=== PATIENT | male | born 1985 | race Caucasian/White ===

== ENCOUNTER 2023-12-31 21:56 | Observation (INO) | payer OTHER, SELFPAY ==
[2023-12-31 14:17] VITALS: BP 188/95
--- NOTE | 2023-12-31 14:45 | ED.GENMED ---
History of Present Illness
General
Chief Complaint: Abdominal Symptoms
Source: patient
Time Seen by Provider: 12/31/23 14:31
History of Present Illness
History of Present Illness:
38yoM with a remote history of kidney stones presenting for evaluation of vomiting. Symptoms began around 5:30am this morning and he has been vomiting persistently throughout the day. He estimates that he has vomited about 10x today. He had diarrhea
last night but none today. He had left sided back pain earlier today but has not had any pain in several hours. He states his symptoms do not feel like his prior kidney stones. He denies any fevers, dysuria, hematuria, chest pain, shortness of
breath. Patient ate chicken at an [place] restaurant last night for dinner. He uses marijuana several times weekly.
Past History
Past History
ED Past Medical History: Psychiatric (Anxiety, depression) and Other (Kidney stones)
ED Past Surgical History: Urological (Lithotripsy)
Social History
Personal: Single
Living: with family
Employment: Employed
Phy Exam
Physical Exam
Physical Exam:
Patient appears uncomfortable, diaphoretic, arrives with an emesis bag
General Physical Exam
General Presentation: well appearing and moderate distress
General Skin: warm and diaphoretic
General Mental: alert
Cardiovascular Exam
Cardiovascular Exam: regular rate/rhythm and no murmur
Pulmonary Exam
Pulmonary Exam: lungs clear, no respiratory distress, no crackles and no wheezing
Gastrointestinal Exam
Gastrointestinal Exam: non tender, soft, non distended and no cva tenderness
Course
Orders/Labs/Results
Orders:
Orders
12/31/23 14:44
0.9% Sodium Chloride 1000 ml [Nss] 1,000 ml IV BOLUS
Ondansetron Injectable [Zofran] 4 mg IV NOW STA
12/31/23 14:49
Complete Blood Count/With Diff Urgent
Comprehensive Metabolic Panel Urgent
Lipase Urgent
12/31/23 15:52
Diphenhydramine [Benadryl] 25 mg IV NOW STA
Metoclopramide [Reglan] 10 mg IV NOW STA
12/31/23 16:51
Electrocardiogram (*1) Urgent
Reason for Study: Other
Other Reason for Exam: Vomiting
EKG- Treatment ONCE
12/31/23 16:54
Troponin I Urgent
Urinalysis Reflex To Culture Urgent
Date Specimen was Collected: 12/31/23
Time Specimen was Collected: 16:07
Urine Microscopic Reflex Cult Urgent
Urine Culture Urgent
DENISSE Source: U
Specimen Description:
Date Specimen was Collected: 12/31/23
Time Specimen was Collected: 16:07
12/31/23 17:01
CT Abd/pel Without Iv Or Oral Urgent
Comment:
Reason For Exam: Vomiting, L flank pain, hx of kidney stones
12/31/23 18:04
Haloperidol Lactate [Haldol] 5 mg IM NOW STA
Abnormal Lab Results
12/31/23 12/31/23
14:49 16:54
WBC 11.0 H 10^3/uL
(4.8-10.8)
MPV 11.3 H fL
(7.4-10.4)
Abs Immat Gran (auto) 0.1 H 10^3/uL
(0-0.05)
Absolute Neuts (auto) 9.0 H 10^3/uL
(1.4-6.5)
Neutrophils % 81.0 H %
(42.2-75.2)
Lymphocytes % 13.7 L %
(20.5-51.1)
Glucose 110 H mg/dl
(70-99)
Urine Ketones 3+ A
(Negative)
Ur Occult Blood Reflex 3+ A
(Negative)
Urine RBC 16-20 A /HPF
(0-2)
Urine Bacteria (Reflex) Moderate A
(Negative)
12/31/23 14:49
12/31/23 14:49
Vital Signs
Initial and Last Documented VS:
Initial Vital Signs
Temp Pulse Resp BP Pulse Ox
98.8 F 65 20 188/95 99
12/31/23 14:17 12/31/23 14:17 12/31/23 14:17 12/31/23 14:17 12/31/23 14:17
Last Documented Vital Signs
Temp Pulse Resp BP Pulse Ox
98.8 F 62 20 152/93 99
12/31/23 14:17 12/31/23 20:10 12/31/23 20:10 12/31/23 20:10 12/31/23 20:10
MDM/Problems Addressed
Differential Diagnosis Includes:
38yoM here with vomiting that began this morning. Ate at a restaurant for dinner last night. Also had diarrhea yesterday. Hx of kidney stones although he denies any pain currently. He appears uncomfortable and diaphoretic. He is hypertensive with
otherwise stable vitals. No abdominal or CVA tenderness on exam. Differential diagnosis includes but is not limited to: gastroenteritis, cannabinoid hyperemesis, kidney stone, dehydration, KESHAV, electrolyte abnormality
Initial ED plan: Check abdominal labs. IV Zofran and fluid bolus and reassess.
*EKG
EKG Intrepretation Date: 12/31/23
EKG Intrepretation Time: 17:05
Heart Rate: 62
Rate: normal
Rhythm: sinus
[place]: normal axis
Interval: normal interval
QRS Pattern: normal QRS
Ischemia: no ischemia
*Critical Care Note
Total Time (30-74mins, 75-104mins- exclusive of procedures): Not Applicable
Update Note
Update Note:
Labs reveal a WBC of 11 which is likely reactive 2/2 vomiting. Electrolytes and renal function normal. UA with microscopic hematuria and moderate bacteria although patient denies any urinary symptoms. He had no improvement with Zofran. CT abdomen,
EKG, and troponin added which are all unremarkable. He received Reglan, Benadryl, and Haldol with continued symptoms. Patient unable to tolerate PO intake and was admitted for intractable symptoms.
ED Attending Note
-
Portions of this chart may have been created with voice recognition software.� Occasional wrong word or��sound alike� substitutions may have occurred due to the inherent limitations of voice recognition software.
Discharge Plan
Departure
Patient Disposition: Admit
Date of Disposition: 12/31/23
Time of Disposition: 20:22
Presentation/result/management discussed w/ accepting MD/DO: Hospitalist
Discharge Problem:
Intractable nausea and vomiting
Prescriptions:
No Action
rabies vacc,human diploid (PF) [Imovax Rabies Vaccine (PF)] 1 ML recon soln
1 ml IM . DIRECTED Qty: 3 0RF
Rx Instructions:
See Rabies Vaccine Post Exposure Prophylaxis Instruction Sheet for Dosing Instructions
cholecalciferol (vitamin D3) 1,000 UNITS tablet
1,000 units PO DAILY
Referrals:
Antonietta Sol DO [Family Provider] -
Interventions
Interventions:
*Risk Screen - Suicide Last Done: 12/31/23 14:17
*General Assessment Last Done: 12/31/23 14:17
*Neglect/Abuse Screening Last Done: 12/31/23 14:17
ED- Fall Risk Assessment Last Done: 12/31/23 14:33
*ED COVID-19 Vaccine History Last Done: 12/31/23 14:33
XC-Qqschl-Hoskuqgtbs Assessment Last Done: 12/31/23 14:33
Discharge Date and Time
Print Language: ALGERIAN
[2023-12-31] MEDS: NSS 1000 IV (14:51)
[2023-12-31] MEDS: ZOFRAN 4 MG IV (14:54)
[2023-12-31 14:57] LABS: % Basophils 0.5 % (0-2); % Eosinophils 0.4 % (0-6); % Immature Granulocytes 0.5 % (0-0.5); % Lymphocytes 13.7 % (20.5-51.1); % Monocytes 3.9 % (1.7-9.3); Absolute Basophils 0.1 10^3/uL (0-0.2); Absolute Immature Granulocytes 0.1 10^3/uL (0-0.05); Absolute Lymphocytes 1.5 10^3/uL (1.2-3.4); Absolute Monocytes 0.4 10^3/uL (0.1-0.6); Hemoglobin 15.8 g/dL (13.0-18.0); Mean Corp Hgb Conc. 35.9 g/dL (33.0-37.0); Mean Corpuscular Hgb 29.8 pg (27.0-31.0); Mean Corpuscular Volume 82.9 fL (80.0-94.0); Mean Platelet Volume 11.3 fL (7.4-10.4); Nucleated Red Blood Cells % 0 % (-); Platelet Count 234 10^3/uL (130-400); Red Blood Cell Count 5.31 10^6/uL (4.70-6.10)
[2023-12-31 15:12] LABS: ALT (SGPT) 31 U/L (0-50); AST (SGOT) 36 U/L (17-59); Albumin 4.9 g/dl (3.5-5.0); Alkaline Phosphatase 72 U/L (38-126); Blood Urea Nitrogen 16 mg/dl (9-20); Carbon Dioxide 24 mmol/L (22-30); Chloride 107 mmol/L (98-107); Estimated Creatinine Clearance > 125 ml/min; Glucose 110 mg/dl (70-99); Lipase 185 U/L (23-300); Potassium 4.6 mmol/L (3.5-5.1); Sodium 140 mmol/L (135-145); Total Bilirubin 1.1 mg/dl (0.2-1.3); Total Protein 7.4 g/dl (6.3-8.2); eGFR > 60.00
[2023-12-31] MEDS: BENADRYL 25 MG IV (15:55)
[2023-12-31] MEDS: REGLAN 10 MG IV (15:55)
[2023-12-31 16:02] VITALS: BP 184/73
[2023-12-31 17:06] LABS: Urine Albumin Trace (Neg - Trace); Urine Bilirubin Negative (Negative); Urine Character Clear (Clear); Urine Color Yellow; Urine Glucose Negative (Negative); Urine Ketone 3+ (Negative); Urine Leukocyte Negative (Negative); Urine Nitrite Negative (Negative); Urine Occult Blood 3+ (Negative); Urine Specific Gravity 1.015 (<1.030); Urine Urobilinogen Negative (Neg - 1+)
[2023-12-31 17:19] LABS: Urine Red Blood Cell 16-20 /HPF (0-2); Urine Squamous Cell 0-2 /LPF (Few); Urine White Cell 0-2 /HPF (0-5)
[2023-12-31 17:20] LABS: Urine Bacteria Moderate (Negative)
[2023-12-31 17:38] VITALS: BP 160/84
[2023-12-31 17:54] LABS: Troponin I < 0.012 ng/ml
[2023-12-31] MEDS: HALDOL 5 MG IM (18:19)
[2023-12-31 20:10] VITALS: BP 152/93
--- NOTE | 2023-12-31 21:24 | HPS.HSE ---
Family Physician
-
Family Physician: Antonietta Sol
Chief Complaint
-
Vomitting
History of Present Illness
38yo man with a remote history of kidney stones comes in with severe vomiting. His symptoms began this morning and he has been vomiting persistently throughout the day. He estimates he has vomited perhaps 10 times today. He also had diarrhea last
night but none today. He had left sided back pain earlier today but has not had any pain in several hours. He states his symptoms do not feel like his prior kidney stone pain. He denies fevers, dysuria, hematuria, chest pain, shortness of breath. He
uses cannabis several times weekly. He does not drink alcohol. He vomited multiple times in the ED, and this eventually was controlled with IM haldol.
Medical History
Past Medical History
Past Medical History: Reports Other
Additional Past Medical History:
Anxiety,
depression
Kidney stones
Lithotripsy
Obesity
Past Surgical History: Reports None
Social History
Tobacco: Non-smoker
Alcohol: None
Drug: Marijuana
Personal: Partner
Employment: Employed
Family History
Family History: Not pertinent
Allergies / Home Medications
Allergies reflects when Allergies were last updated in [facility].
Home Medications with original date entered in [facility]
Allergy/Medication List:
Allergies
Allergy/AdvReac Type Severity Reaction Status Date / Time
No Known Allergies Allergy Verified 12/31/23 14:17
Home Medications
No meds at this time
Review of Systems
-
History Source: Patient
A 12 point ROS was completed and negative except as noted: Yes
Physical Exam
Vital Signs
Vital Signs
Temp Pulse Resp BP Pulse Ox
98.8 F 62 20 152/93 99
12/31/23 14:17 12/31/23 20:10 12/31/23 20:10 12/31/23 20:10 12/31/23 20:10
Physical Exam
General: Well Developed, Well Nourished, No Apparent Distress, Comfortable, Conversant and Obese
HEENT: Moist mucous membranes, Atraumatic, [place] Conjunctivae, No Ptosis, Nose Appears Normal and Ears Appear Normal
Respiratory: Clear
Cardiac: S1/S2 and Regular Rhythm
GI: Soft, Non Tender and Non Distended
Musculoskeletal: No Clubbing, No Cyanosis and No Edema
Skin: Warm and Dry; No Rash or Jaundice
Neuro: Awake, Alert, Oriented and AO x 3
Psych: Calm
Laboratory Results
-
12/31/23 14:49
12/31/23 14:49
Laboratory Results
Total Bilirubin 1.1 mg/dl (0.2-1.3) 12/31/23 14:49
AST 36 U/L (17-59) 12/31/23 14:49
ALT 31 U/L (0-50) 12/31/23 14:49
Alkaline Phosphatase 72 U/L (38-126) 12/31/23 14:49
Troponin I < 0.012 ng/ml 12/31/23 16:54
Lipase 185 U/L (23-300) 12/31/23 14:49
Data Reviewed
-
Lab Data: Labs Reviewed by me
Impression/Plan
-
IMPRESSION:
38 man with cyclical vomiting, h/o kidney stones, and regular cannabis use. CT results:
The unenhanced liver, gallbladder, bile ducts, pancreas, spleen, and bilateral adrenal glands are unremarkable.
Small nonobstructing calculus in the upper pole of the left kidney measuring 4 mm.
Punctate nonobstructing calculus in the upper pole of the right kidney.
No hydronephrosis.
No ureterolithiasis.
The abdominal aorta is normal in caliber.
The appendix is within normal limits.
No bowel wall thickening, obstruction, or inflammation.
No extraluminal free air, fluid collection, or ascites.
The urinary bladder and prostate gland are unremarkable.
No suspicious osseous lesion.
PLAN:
1. Nausea control as required. This could be a viral syndrome or related to cannabis.
Zofran prn
Ativan prn
Haldol IM if above two does not work
NPO over night
IV fluids
Start to advance diet in the am
2. Recommend abstinence from cannabis
Full code
Ambulation for DVTp
[2023-12-31 22:13] VITALS: BP 152/74
[2023-12-31 22:47] VITALS: BMI 35.7
[2023-12-31] MEDS: LR 1000 IV (22:59)
[2023-12-31 23:16] VITALS: BP 136/64
--- NOTE | 2023-12-31 23:54 | PTCARENOTE ---
Receive pt from ER. Pt alert oriented X3, calm, in no distress. Pt ambulatory from the stretcher to the room. Pt denies abd/flank pain. Pt states that the nausea is improved, denies vomiting. Pt oriented to the room, call silveira within reach. Pt's
spouse (Elizabeth) at the bedside. VSS (T=98.9, HR=84, RR=20, OU=999/64, SpO2=92% on RA). IVFs infusing as per order. Pt NPO, will be advanced to clear liquid diet in the am for breakfast. Will keep monitoring the pt's status.
[2024-01-01] MEDS: LR 1000 IV (05:46)
[2024-01-01 07:05] VITALS: BP 138/82
[2024-01-01 07:46] LABS: Hematocrit 40.7 % (39.0-52.0); Hemoglobin 13.9 g/dL (13.0-18.0); Mean Corp Hgb Conc. 34.2 g/dL (33.0-37.0); Mean Corpuscular Hgb 29.4 pg (27.0-31.0); Mean Corpuscular Volume 86.2 fL (80.0-94.0); Mean Platelet Volume 11.4 fL (7.4-10.4); Platelet Count 205 10^3/uL (130-400); Red Blood Cell Count 4.72 10^6/uL (4.70-6.10); Red Cell Dist. Width 13.2 % (11.5-14.5); White Blood Cell Count 9.5 10^3/uL (4.8-10.8)
[2024-01-01 08:28] LABS: Blood Urea Nitrogen 14 mg/dl (9-20); Calcium 9.1 mg/dl (8.4-10.2); Carbon Dioxide 24 mmol/L (22-30); Chloride 107 mmol/L (98-107); Estimated Creatinine Clearance > 125 ml/min; Glucose 89 mg/dl (70-99); Lipase 910 U/L (23-300); Magnesium 1.9 mg/dl (1.6-2.3); Sodium 137 mmol/L (135-145); eGFR > 60.00
[2024-01-01 08:49] LABS: TSH 0.48 uIU/ml (0.47-4.68)
--- NOTE | 2024-01-01 10:20 | W.PN.HOSP.TC ---
Addendum entered and electronically signed by Ladonna Parham MD 01/01/24 13:59:
total DC time 38 min
Original Note:
Today's Communication/Plan
-
see A/P
Assessment / Plan
Assessment / Plan
HPI: 38 yo man with remote history of kidney stones p/w severe vomiting. His symptoms began in the morning and he has been vomiting persistently throughout the day. He estimates he has vomited perhaps 10 times. He also had diarrhea the night prior.
He had left sided back pain prior but none since admission. He states his symptoms do not feel like his prior kidney stone pain.
He denies fevers, dysuria, hematuria, chest pain, shortness of breath. He uses cannabis several times weekly. He does not drink alcohol. He vomited multiple times in the ED, and this eventually was controlled with IM haldol.
A/P:
# cyclical vomiting likely due to regular marijuana use
CT AP unrevealing
Cont Zofran prn,
Hold further Haldol and Ativan prn
Recommend abstinence from cannabis
# h/o kidney stones
Full code
Ambulation for DVTp
Anticipated Discharge: Today
Subjective/Interval History
-
Date of Service: January 01, 2024
Objective Data
-
Labs:
Laboratory Results
01/01/24
06:39
WBC 9.5
Hgb 13.9
Hct 40.7
Plt Count 205
Sodium 137
Potassium 4.0
Chloride 107
Carbon Dioxide 24
BUN 14
Creatinine 0.7
Glucose 89
Calcium 9.1
Vital Signs:
Vital Signs
Temp Pulse Resp BP Pulse Ox
36.6 C 79 18 138/82 98
01/01/24 07:05 01/01/24 07:05 01/01/24 07:05 01/01/24 07:05 01/01/24 07:05
I&O
12/31/23 01/01/24 01/02/24
06:59 06:59 06:59
Intake Total 5 / 5
Balance 1074
Review of Systems
-
Abdomen/GI: Denies Abdominal Pain, Nausea (resolved ) or Vomiting (resolved)
Physical Exam
-
General: Well Developed, Well Nourished, No Apparent Distress, Comfortable and Conversant; Negative Respiratory Distress
HEENT: Normocephalic, Atraumatic, Nose Appears Normal and Ears Appear Normal; Negative Oxygen
Respiratory: Clear to Auscultation and Non Labored Respirations; Negative Accessory Resp Muscle Use
Cardiac: Regular Rhythm and S1/S2
GI: Soft, Nontender, Nondistended and Normal Bowel Sounds
Skin: Warm and Dry
Neuro: Awake, Alert, Oriented and AO x 3
Psych: Calm and Intact Judgement/Insight
Data Reviewed
-
CT Scan: Report Reviewed by me
Labs: Labs Reviewed by me
[2024-01-01 11:04] LABS: Amphetamines Negative (Negative); Barbiturates Negative (Negative); Benzodiazepines Negative (Negative); Buprenorphine Negative (Negative); Cocaine Negative (Negative); Marijuana Positive (Negative); Methadone Negative (Negative); Methamphetamines Negative (Negative); Opiates Negative (Negative); Phencyclidine Negative (Negative); Tricyclic Antidepressants Negative (Negative)
--- NOTE | 2024-01-01 11:18 | CM ---
Patient seen bedside with , initial assessment completed. Patient resides with in first floor apartment, denies DME, VN, or SNF. Patient PCP Antonietta Sol, pharmacy [facility] in [place]. Patient denies any needs from CM upon
discharge. CM will continue to follow for all discharge planning needs.
Plan; home no needs.
[2024-01-01 11:27] VITALS: BP 138/83
--- NOTE | 2024-01-01 13:46 | W.DCSUMMARY ---
Discharge Summary
Discharge Data
Date of Admission: 12/31/23
Date of Discharge: 01/01/24
-
Pending Results: No
Hospital Course
Principal Diagnosis:
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
Chronic Diagnoses:�
History of kidney stones
Consultations:�
None
Procedures:�
None
Clinical course:�
This is a 38-year-old male with past medical history as stated above, who presented with severe vomiting. He admits to taking regular marijuana.
Problem 1:
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
His CT AP was unrevealing.
His UDS was positive for marijuana
He was treated with Zofran while in the hospital and received Reglan and Haldol as well.
He has been informed to abstain from cannabis going forward.
His nausea and vomiting have resolved prior to discharge, and he was able to tolerate solid food before going home.
Discharge Plan
-
Patient Disposition: Home (Routine Discharge)
Discharge Diagnosis/Procedures: cyclical vomiting likely due to marijuana use
Condition: Good
Diet: As tolerated and Regular
Activity: As tolerated
Driving Restrictions: As prior to admission
Referrals:
Antonietta Sol, DO [Family Provider] - in less than 1 week
Prescriptions:
Continued
cholecalciferol (vitamin D3) 1,000 UNITS tablet
1,000 units PO DAILY
Discontinued
Imovax Rabies Vaccine (PF) 1 ML recon soln
1 ml IM . DIRECTED Qty: 3 0RF
Rx Instructions:
See Rabies Vaccine Post Exposure Prophylaxis Instruction Sheet for Dosing Instructions
Discharge Orders:
Discharge Patient (As Directed); Ordered 01/01/24
Ordered By: Ladonna Parham
Discharge Date and Time
Discharge Date/Time: 01/01/24 13:00
Print Language: ANDORRAN
== END 2024-01-01 13:00 | disposition home or self-care (01) ==
LOC: 4 EAST ACU 21:56
PROVIDERS: Physician Assistant; ADMITTING PHYSICIAN Internal Medicine; ATTENDING PHYSICIAN Internal Medicine; EMERGENCY PHYSICIAN Student in an Organized Health Care Education/Training Program; FAMILY PHYSICIAN Family Medicine
DX: R11.2 Nausea with vomiting, unspecified (principal); F12.90 Cannabis use, unspecified, uncomplicated; R10.9 Unspecified abdominal pain; R19.7 Diarrhea, unspecified; M54.9 Dorsalgia, unspecified; N20.0 Calculus of kidney; F41.9 Anxiety disorder, unspecified; F32.A Depression, unspecified; R61 Generalized hyperhidrosis; E66.9 Obesity, unspecified; Z68.35 Body mass index [BMI] 35.0-35.9, adult; Z87.442 Personal history of urinary calculi
CPT/HCPCS: 74176; 80048; 80053; 80306; 81003; 81015; 83690; 83735; 84443; 84484; 85025; 85027; 87086; 93005; 96361; 96372; 96374; 96375; 99285; G0378

== ENCOUNTER 2024-04-26 12:42 | Emergency (ER) | payer OTHER, SELFPAY ==
[2024-04-26 12:50] VITALS: BP 153/98
--- NOTE | 2024-04-26 12:55 | ED.GENMED ---
History of Present Illness
General
Chief Complaint: Flank Pain
Source: patient
Exam Limitations: none
Time Seen by Provider: 04/26/24 12:55
Nursing documentation reviewed up to this point in time: agreed with
History of Present Illness
History of Present Illness:
This is a 38-year-old male with a past medical history of kidney stones, presenting to the emergency department today with concerns of left-sided flank pain and left-sided groin pain for the past 3 days. Patient has also had gross hematuria,
nausea, and vomiting associated with this. Patient states that he has had multiple kidney stones in the past and feels that this is exactly how he feels when he gets a kidney stone. Patient follows with Dr. Alexandre. Patient has had a kidney
stone as big as 13 mm in the past requiring lithotripsy. Patient also had an episode of diarrhea yesterday. Patient denies any chest pain or shortness of breath, patient denies any syncopal episodes, fevers or chills. Patient denies any burning
with urination. Patient states that today, his pain persists but he did start to improve and called Dr. Alexandre office and the nurse there told him that he should report to the emergency department for further evaluation.
Past History
Past History
ED Past Medical History: Psychiatric (Anxiety, depression) and Other (Kidney stones)
ED Past Surgical History: Urological (Lithotripsy)
Social History
Personal: Single
Living: with family
Employment: Employed
Review of Systems
Review of Systems
All Other Systems: ROS reviewed and negative except as documented in HPI and ROS
Phy Exam
Physical Exam
Physical Exam:
General: Patient is well appearing and in no acute distress; non-toxic
Skin: Warm and dry, no rashes or lesions
Head: Normocephalic, atraumatic
Eyes: Sclera non-icteric. EOMs intact. PERRLA.
Cardiac: Regular rate and rhythm, no murmurs
Peripheral Vascular: No lower extremity swelling or edema
Pulm: Normal respiratory effort
Abdomen: Left CVA tenderness noted, mild left lower quadrant tenderness palpation noted, no palpable masses
Neuro: CN II-XII intact, no focal neurologic deficits.
Psychiatric: Appropriate mood and affect.
Course
Orders/Labs/Results
Orders:
Orders
04/26/24 13:25
CT Abd/pelvis W Iv Cont Urgent
Comment:
Reason For Exam: left flank and groin pain
Ketorolac [Toradol] 15 mg IV NOW STA
Ondansetron Injectable [Zofran] 4 mg IV NOW STA
04/26/24 13:49
Complete Blood Count/With Diff Urgent
Comprehensive Metabolic Panel Urgent
Urinalysis Reflex To Culture Urgent
Date Specimen was Collected: 04/26/24
Time Specimen was Collected: 13:42
Urine Microscopic Reflex Cult Urgent
Abnormal Lab Results
04/26/24
13:49
MPV 11.0 H fL
(7.4-10.4)
Absolute Monos (auto) 0.7 H 10^3/uL
(0.1-0.6)
Glucose 108 H mg/dl
(70-99)
Ur Occult Blood Reflex 4+ A
(Negative)
Urine RBC 7-10 A /HPF
(0-2)
04/26/24 13:49
04/26/24 13:49
Vital Signs
Initial and Last Documented VS:
Initial Vital Signs
Temp Pulse Resp BP Pulse Ox
98.1 F 100 16 153/98 98
04/26/24 12:50 04/26/24 12:50 04/26/24 12:50 04/26/24 12:50 04/26/24 12:50
Last Documented Vital Signs
Temp Pulse Resp BP Pulse Ox
98.1 F 98 18 150/90 98
04/26/24 12:50 04/26/24 18:16 04/26/24 18:16 04/26/24 18:16 04/26/24 18:16
MDM/Problems Addressed
Differential Diagnosis Includes:
Nephrolithiasis, urinary tract infection, pyelonephritis, diverticulitis, gastroenteritis
MDM/Problems Addressed:
38-year-old male with past medical history of kidney stones presents emergency department today with gross hematuria and left-sided flank pain. Patient states this been going on for the past few days, he had multiple episodes are intermittent
nausea and vomiting as well. On physical exam, he is well-appearing, he is declining medication for pain at this time, did offer Zofran Toradol. Patient had lab work obtained which did not show any evidence of leukocytosis, no electrolyte
abnormalities. He had a urinalysis done which showed blood but no signs of infection. His abdominal and pelvic CAT scan revealed a 8 mm calculus within the left renal pelvis and no associated hydro, as well as a 2 mm nonobstructing stone in the
superior pole of the right kidney. Did review this case with Dr. Meza who suspects that patient is either having intermittent obstruction or that he passed a stone before being image. Discussed findings with patient. Patient states that he
feels well enough to go home, will send Zofran and Flomax to pharmacy. Patient stable for discharge. Patient will call Dr. Alexandre's office for follow-up appointment.
Chronic conditions affecting care:
Nephrolithiasis
*Pulse Oximetry
Patient hypoxic: no
*Critical Care Note
Total Time (30-74mins, 75-104mins- exclusive of procedures): Not Applicable
Data Reviewed
Review of Other/Old Records Reveals: Records (Reviewed discharge summary from 01/01/2024, patient seen for cyclical vomiting and admitted for marijuana use, reviewed ER physician documentation from 04/19/2013, patient seen for kidney stone)
Source: patient and records
Further Testing Considered But Not Given:
N/A
Patient Management
Escalation/DeEscalation of care consider admission/obs:
Admit not indicated, patient stable for discharge, case reviewed with my attending Dr. Otoole
ED Attending Note
-
Portions of this chart may have been created with voice recognition software.� Occasional wrong word or��sound alike� substitutions may have occurred due to the inherent limitations of voice recognition software.
Discharge Plan
Departure
Patient Disposition: Home (Routine Discharge)
Date of Disposition: 04/26/24
Time of Disposition: 17:43
Patient with high blood pressure during this ER visit?: Yes
Condition: Good
Discharge Problem:
Kidney calculus
Instructions: Renal Colic (DC), How to Strain Your Urine, BLOOD PRESSURE
Prescriptions:
New
tamsulosin [Flomax] 0.4 mg capsule
0.4 mg PO DAILY Qty: 8 0RF
ondansetron 4 mg tablet,disintegrating
4 mg PO Q6H PRN (Reason: nausea and vomiting) Qty: 8 0RF
No Action
cholecalciferol (vitamin D3) 1,000 UNITS tablet
1,000 units PO DAILY
Referrals:
Gilbert Garcia PA-C [Family Provider] -
Sonny Alexandre MD [Active] - Call in 1-3 days for appt
Stand Alone Forms: Return to Work
Activity Restrictions/Additional Instructions:
Please return emergency department should you develop fevers or chills, burning with urination, intractable nausea or vomiting, syncopal episodes, chest pain, shortness of breath, or any other signs or symptoms concerning to you.
Please follow-up with Dr. Alexandre.
Flomax and Zofran have been sent to your pharmacy.
Interventions
Interventions:
*Risk Screen - Suicide Last Done: 04/26/24 12:50
*General Assessment Last Done: 04/26/24 12:50
*Neglect/Abuse Screening Last Done: 04/26/24 12:50
*ED COVID-19 Vaccine History Last Done: 04/26/24 12:57
*Nursing Disposition Last Done: 04/26/24 18:16
DO-Cvecei-Xskseefcrz Assessment Last Done: 04/26/24 12:57
ED-Male Genitourinary Assessment Last Done: 04/26/24 12:57
Discharge Date and Time
Discharge Date/Time: 04/26/24 18:17
Print Language: FILIPINO
[2024-04-26 14:02] LABS: % Basophils 1.2 % (0-2); % Eosinophils 1.3 % (0-6); % Immature Granulocytes 0.3 % (0-0.5); % Lymphocytes 25.1 % (20.5-51.1); % Monocytes 7.3 % (1.7-9.3); % Neutrophils 64.8 % (42.2-75.2); Absolute Basophils 0.1 10^3/uL (0-0.2); Absolute Eosinophils 0.1 10^3/uL (0-0.7); Absolute Lymphocytes 2.4 10^3/uL (1.2-3.4); Absolute Monocytes 0.7 10^3/uL (0.1-0.6); Absolute Neutrophils 6.2 10^3/uL (1.4-6.5); Hematocrit 46.2 % (39.0-52.0); Hemoglobin 16.1 g/dL (13.0-18.0); Mean Corp Hgb Conc. 34.8 g/dL (33.0-37.0); Mean Corpuscular Hgb 29.8 pg (27.0-31.0); Mean Corpuscular Volume 85.4 fL (80.0-94.0); Nucleated Red Blood Cells % 0 % (-); Platelet Count 230 10^3/uL (130-400); Red Blood Cell Count 5.41 10^6/uL (4.70-6.10); Red Cell Dist. Width 12.8 % (11.5-14.5); White Blood Cell Count 9.5 10^3/uL (4.8-10.8)
[2024-04-26 14:12] LABS: ALT (SGPT) 27 U/L (0-50); AST (SGOT) 26 U/L (17-59); Albumin 4.7 g/dl (3.5-5.0); Alkaline Phosphatase 55 U/L (38-126); Blood Urea Nitrogen 9 mg/dl (9-20); Calcium 9.6 mg/dl (8.4-10.2); Carbon Dioxide 26 mmol/L (22-30); Chloride 100 mmol/L (98-107); Glucose 108 mg/dl (70-99); Potassium 4.1 mmol/L (3.5-5.1); Sodium 139 mmol/L (135-145); Total Bilirubin 0.7 mg/dl (0.2-1.3); Total Protein 7.2 g/dl (6.3-8.2); eGFR > 60.00
[2024-04-26 14:16] LABS: Urine Albumin Negative (Neg - Trace); Urine Bilirubin Negative (Negative); Urine Character Clear (Clear); Urine Color Yellow; Urine Glucose Negative (Negative); Urine Ketone Negative (Negative); Urine Leukocyte Negative (Negative); Urine Nitrite Negative (Negative); Urine Occult Blood 4+ (Negative); Urine Urobilinogen Negative (Neg - 1+); Urine pH 6.5 (5.0-9.0)
[2024-04-26 14:58] LABS: Urine Mucus Many
[2024-04-26 15:01] LABS: Urine Amorphous Seen
[2024-04-26 18:16] VITALS: BP 150/90
== END 2024-04-26 18:17 | disposition home or self-care (01) ==
LOC: EMR 12:42
PROVIDERS: Physician Assistant; EMERGENCY PHYSICIAN Emergency Medicine; FAMILY PHYSICIAN Physician Assistant
DX: N20.0 Calculus of kidney (principal); R31.0 Gross hematuria; R11.2 Nausea with vomiting, unspecified; F41.8 Other specified anxiety disorders; Z87.442 Personal history of urinary calculi
CPT/HCPCS: 99284; 74177; 80053; 81003; 81015; 85025; Q9967

== ENCOUNTER → 2024-08-30 15:36 | Outpatient (REF) | payer OTHER, SELFPAY | LOC: RAD 15:36 | PROVIDERS: ATTENDING PHYSICIAN Specialist; FAMILY PHYSICIAN Student in an Organized Health Care Education/Training Program | DX: N20.0 Calculus of kidney (principal) | CPT/HCPCS: 74018 ==

== ENCOUNTER 2024-09-20 06:18 | Day surgery (SDC) | payer OTHER, SELFPAY ==
[2024-09-20] VITALS (14 sets, daily range): BP systolic 132–165; BP diastolic 81–110; BMI 33.3
[2024-09-20] MEDS: NORMOSOL-R/PLASMALYTE-A 1000 IV (07:42)
[2024-09-20] MEDS: Pyridium 200 MG PO (09:59)
[2024-09-20] MEDS: TORADOL 30 MG IV (10:19)
[2024-09-20] MEDS: COMPAZINE 5 MG IV (11:46)
== END 2024-09-20 12:03 | disposition home or self-care (01) ==
LOC: SDS 06:18
PROVIDERS: ATTENDING PHYSICIAN Specialist
DX: N20.0 Calculus of kidney (principal); R31.0 Gross hematuria
CPT/HCPCS: 52356; 74018; 76000; C2617

== ENCOUNTER 2024-09-23 07:30 | Emergency (ER) | payer OTHER, SELFPAY ==
[2024-09-23 07:33] VITALS: BP 141/93
--- NOTE | 2024-09-23 07:45 | ED.GENMED ---
History of Present Illness
<THEODORE Hutton Last Filed: 09/23/24 07:50>
General
Chief Complaint: Male Genito-Urinary Symptoms
Source: patient
Exam Limitations: none
Time Seen by Provider: 09/23/24 07:37
History of Present Illness
History of Present Illness:
39-year-old male presents complaining of increased left flank and lower abdominal pain with nausea and vomiting as well as significant hematuria. 3 days ago, he had lithotripsy, stone irrigation and stent placement of his left ureter. He was doing
well over the weekend however today the pain and nausea increased as well as the hematuria. They spoke with the urology office today and they were advised to come here for evaluation. He denies a fever. He is not currently on an antibiotic. No
chest pain or shortness of breath. He is typically healthy otherwise
Past History
<THEODORE Hutton Last Filed: 09/23/24 07:50>
Past History
ED Past Medical History: Psychiatric (Anxiety, depression) and Other (Kidney stones)
ED Past Surgical History: Urological (Lithotripsy)
Social History
Personal: Single
Living: with family
Employment: Employed
Phy Exam
<THEODORE Hutton Last Filed: 09/23/24 07:50>
Physical Exam
Physical Exam:
General: Uncomfortable appearing male no acute respiratory distress
HEENT: Normocephalic atraumatic
Heart: Regular rate and rhythm
Lungs: Clear no wheeze
Abdomen is soft but tender to the left mid abdomen and flank
Extremities: No cyanosis
Skin: Warm no rash
Course
<THEODORE Hutton Last Filed: 09/23/24 07:50>
Orders/Labs/Results
Orders:
Orders
09/23/24 07:43
0.9% Sodium Chloride 1000 ml [Nss] 1,000 ml IV BOLUS
Ketorolac [Toradol] 15 mg IV NOW STA
Ondansetron Injectable [Zofran] 4 mg IV NOW STA
09/23/24 07:46
Complete Blood Count/With Diff Urgent
Comprehensive Metabolic Panel Urgent
Urinalysis Reflex To Culture Urgent
Date Specimen was Collected: 09/23/24
Time Specimen was Collected: 07:38
Urine Microscopic Reflex Cult Urgent
Urine Culture Urgent
DENISSE Source: U
Specimen Description:
Date Specimen was Collected: 09/23/24
Time Specimen was Collected: 07:38
09/23/24 07:51
CR Abdomen - 2 Views Urgent
Comment:
Reason For Exam: left ureteral stent check
09/23/24 07:56
HYDROmorphone [Dilaudid] 1 mg IV NOW STA
Ondansetron Injectable [Zofran] 4 mg IV NOW STA
Abnormal Lab Results
09/23/24
07:46
WBC 14.8 H 10^3/uL
(4.8-10.8)
MPV 10.5 H fL
(7.4-10.4)
Abs Immat Gran (auto) 0.1 H 10^3/uL
(0-0.05)
Absolute Neuts (auto) 12.7 H 10^3/uL
(1.4-6.5)
Neutrophils % 85.8 H %
(42.2-75.2)
Lymphocytes % 9.9 L %
(20.5-51.1)
Chloride 108 H mmol/L
(98-107)
BUN 8 L mg/dl
(9-20)
Glucose 148 H mg/dl
(70-99)
Calcium 10.4 H mg/dl
(8.4-10.2)
Urine Ketones 1+ A
(Negative)
Ur Occult Blood Reflex 4+ A
(Negative)
Leukocyte Esterase Rfl 2+ A
(Negative)
Urine RBC >100 A /HPF
(0-2)
Urine WBC (Reflex) 21-25 A /HPF
(0-5)
Urine Albumin (Reflex) 4+ A
(Neg - Trace)
09/23/24 07:46
09/23/24 07:46
Vital Signs
Initial and Last Documented VS:
Initial Vital Signs
Temp Pulse Resp BP Pulse Ox
98.5 F 90 18 141/93 98
09/23/24 07:33 09/23/24 07:33 09/23/24 07:33 09/23/24 07:33 09/23/24 07:33
Last Documented Vital Signs
Temp Pulse Resp BP Pulse Ox
98.5 F 94 18 134/84 98
09/23/24 07:33 09/23/24 10:44 09/23/24 10:44 09/23/24 10:44 09/23/24 10:44
<DRAGAN Fermin - Last Filed: 09/23/24 17:35>
Orders/Labs/Results
Orders:
Orders
09/23/24 07:43
0.9% Sodium Chloride 1000 ml [Nss] 1,000 ml IV BOLUS
Ketorolac [Toradol] 15 mg IV NOW STA
Ondansetron Injectable [Zofran] 4 mg IV NOW STA
09/23/24 07:46
Complete Blood Count/With Diff Urgent
Comprehensive Metabolic Panel Urgent
Urinalysis Reflex To Culture Urgent
Date Specimen was Collected: 09/23/24
Time Specimen was Collected: 07:38
Urine Microscopic Reflex Cult Urgent
Urine Culture Urgent
DENISSE Source: U
Specimen Description:
Date Specimen was Collected: 09/23/24
Time Specimen was Collected: 07:38
09/23/24 07:51
CR Abdomen - 2 Views Urgent
Comment:
Reason For Exam: left ureteral stent check
09/23/24 07:56
HYDROmorphone [Dilaudid] 1 mg IV NOW STA
Ondansetron Injectable [Zofran] 4 mg IV NOW STA
Abnormal Lab Results
09/23/24
07:46
WBC 14.8 H 10^3/uL
(4.8-10.8)
MPV 10.5 H fL
(7.4-10.4)
Abs Immat Gran (auto) 0.1 H 10^3/uL
(0-0.05)
Absolute Neuts (auto) 12.7 H 10^3/uL
(1.4-6.5)
Neutrophils % 85.8 H %
(42.2-75.2)
Lymphocytes % 9.9 L %
(20.5-51.1)
Chloride 108 H mmol/L
(98-107)
BUN 8 L mg/dl
(9-20)
Glucose 148 H mg/dl
(70-99)
Calcium 10.4 H mg/dl
(8.4-10.2)
Urine Ketones 1+ A
(Negative)
Ur Occult Blood Reflex 4+ A
(Negative)
Leukocyte Esterase Rfl 2+ A
(Negative)
Urine RBC >100 A /HPF
(0-2)
Urine WBC (Reflex) 21-25 A /HPF
(0-5)
Urine Albumin (Reflex) 4+ A
(Neg - Trace)
09/23/24 07:46
09/23/24 07:46
Vital Signs
Initial and Last Documented VS:
Initial Vital Signs
Temp Pulse Resp BP Pulse Ox
98.5 F 90 18 141/93 98
09/23/24 07:33 09/23/24 07:33 09/23/24 07:33 09/23/24 07:33 09/23/24 07:33
Last Documented Vital Signs
Temp Pulse Resp BP Pulse Ox
98.5 F 94 18 134/84 98
09/23/24 07:33 09/23/24 10:44 09/23/24 10:44 09/23/24 10:44 09/23/24 10:44
<Gilbert Garcia PA-C - Last Filed: 09/23/24 07:50>
MDM/Problems Addressed
Differential Diagnosis Includes:
Increased left flank pain hematuria nausea and vomiting status post stent placement and lithotripsy 3 days ago. Will check labs urinalysis treat symptoms Zofran Toradol fluids
Reached out to urology for further recommendations given recent procedure
<DRAGAN Fermin - Last Filed: 09/23/24 17:35>
MDM/Problems Addressed
Differential Diagnosis Includes:
Increased left flank pain hematuria nausea and vomiting status post stent placement and lithotripsy 3 days ago. Will check labs urinalysis treat symptoms Zofran Toradol fluids
Reached out to urology for further recommendations given recent procedure
1730: Patient was evaluated by urology. Dr. Rodriguez reviewed all labs and imaging. Patient is no acute distress stable for discharge home will discharge with Zofran for nausea. Patient has tramadol at home. He will follow-up for urine culture
results. he is to return if any worsening of symptoms follow-up with urology as previously instructed
<DRAGAN Fermin - Last Filed: 09/23/24 17:35>
*Critical Care Note
Total Time (30-74mins, 75-104mins- exclusive of procedures): Not Applicable
ED Attending Note
<Gilbert Garcia PA-C - Last Filed: 09/23/24 07:50>
-
Portions of this chart may have been created with voice recognition software.� Occasional wrong word or��sound alike� substitutions may have occurred due to the inherent limitations of voice recognition software.
Discharge Plan
Departure
Patient Disposition: Home (Routine Discharge)
Date of Disposition: 09/23/24
Time of Disposition: 17:33
Patient with high blood pressure during this ER visit?: Yes
Condition: Fair
Covid-19: Not Applicable
Discharge Problem:
Hematuria
Instructions: Blood in the Urine (Hematuria), Adult (DC), BLOOD PRESSURE
Prescriptions:
New
ondansetron 4 mg tablet,disintegrating
4 mg PO Q8H PRN (Reason: nausea and vomiting) Qty: 10 0RF
No Action
cholecalciferol (vitamin D3) 1,000 UNITS tablet
1,000 units PO DAILY
tamsulosin [Flomax] 0.4 mg capsule
0.4 mg PO DAILY Qty: 8 0RF
ondansetron 4 mg tablet,disintegrating
4 mg PO Q6H PRN (Reason: nausea and vomiting) Qty: 8 0RF
acetaminophen [Tylenol] 325 mg Tablet
650 mg PO Q4H PRN (Reason: pain)
tramadol 50 mg Tablet
50 mg PO TID PRN (Reason: pain)
ibuprofen [Advil] 200 mg Tablet
400 mg PO Q6H PRN (Reason: pain)
magnesium 200 mg Tablet
400 mg PO DAILY
[place] 3
1 dose PO DAILY
diphenhydramine HCl [Sleep Aid (diphenhydramine)] 25 mg Tablet
25 mg PO HS PRN (Reason: INSOMNIA)
Referrals:
Abdias Rodriguez MD [Active] -
Roberto Gastelum MD [Family Provider] -
Activity Restrictions/Additional Instructions:
As discussed be sure to stay well-hydrated. You may take your tramadol for pain. For nausea a prescription for Zofran was sent to your pharmacy. Please follow-up with urology as recommended by urologist. You may call to check on your culture as
instructed.
return however if any worsening of symptoms
Interventions
Interventions:
*Risk Screen - Suicide Last Done: 09/23/24 07:33
*General Assessment Last Done: 09/23/24 07:33
*Neglect/Abuse Screening Last Done: 09/23/24 07:33
*ED- Fall Risk Assessment Last Done: 09/23/24 07:53
*ED COVID-19 Vaccine History Last Done: 09/23/24 07:53
ED-Male Genitourinary Assessment Last Done: 09/23/24 07:53
Discharge Date and Time
Print Language: YORUBA
[2024-09-23] MEDS: TORADOL 15 MG IV (07:49)
[2024-09-23] MEDS: NSS 1000 IV (07:50)
[2024-09-23] MEDS: ZOFRAN 4 MG IV (07:50)
[2024-09-23 07:52] VITALS: BMI 33.2
[2024-09-23 07:59] LABS: % Basophils 0.5 % (0-2); % Eosinophils 0.2 % (0-6); % Immature Granulocytes 0.4 % (0-0.5); % Lymphocytes 9.9 % (20.5-51.1); % Monocytes 3.2 % (1.7-9.3); % Neutrophils 85.8 % (42.2-75.2); Absolute Basophils 0.1 10^3/uL (0-0.2); Absolute Immature Granulocytes 0.1 10^3/uL (0-0.05); Absolute Lymphocytes 1.5 10^3/uL (1.2-3.4); Absolute Monocytes 0.5 10^3/uL (0.1-0.6); Absolute Neutrophils 12.7 10^3/uL (1.4-6.5); Hematocrit 50.3 % (39.0-52.0); Hemoglobin 17.8 g/dL (13.0-18.0); Mean Corp Hgb Conc. 35.4 g/dL (33.0-37.0); Mean Corpuscular Hgb 29.8 pg (27.0-31.0); Mean Corpuscular Volume 84.1 fL (80.0-94.0); Mean Platelet Volume 10.5 fL (7.4-10.4); Nucleated Red Blood Cells % 0 % (-); Platelet Count 256 10^3/uL (130-400); Red Blood Cell Count 5.98 10^6/uL (4.70-6.10); Red Cell Dist. Width 12.8 % (11.5-14.5); Urine Albumin 4+ (Neg - Trace); Urine Bilirubin Negative (Negative); Urine Character Bloody (Clear); Urine Color Red; Urine Glucose Negative (Negative); Urine Ketone 1+ (Negative); Urine Leukocyte 2+ (Negative); Urine Nitrite Negative (Negative); Urine Occult Blood 4+ (Negative); Urine Urobilinogen Negative (Neg - 1+); White Blood Cell Count 14.8 10^3/uL (4.8-10.8)
[2024-09-23] MEDS: DILAUDID 1 MG IV (07:59)
[2024-09-23 08:23] LABS: Urine Squamous Cell 0-2 /LPF (Few); Urine Urothelial Cell 0-2 /LPF (FEW)
[2024-09-23 08:24] LABS: Urine Red Blood Cell >100 /HPF (0-2); Urine White Cell 21-25 /HPF (0-5)
[2024-09-23 08:26] LABS: ALT (SGPT) 19 U/L (0-50); AST (SGOT) 17 U/L (17-59); Albumin 4.7 g/dl (3.5-5.0); Alkaline Phosphatase 89 U/L (38-126); Blood Urea Nitrogen 8 mg/dl (9-20); Calcium 10.4 mg/dl (8.4-10.2); Carbon Dioxide 23 mmol/L (22-30); Chloride 108 mmol/L (98-107); Estimated Creatinine Clearance > 125 ml/min; Glucose 148 mg/dl (70-99); Potassium 4.3 mmol/L (3.5-5.1); Sodium 142 mmol/L (135-145); Total Bilirubin 0.9 mg/dl (0.2-1.3); Total Protein 7.5 g/dl (6.3-8.2); eGFR > 60.00
[2024-09-23 08:38] VITALS: BP 145/92
[2024-09-23 10:44] VITALS: BP 134/84
[2024-09-23 17:53] VITALS: BP 128/84
== END 2024-09-23 17:55 | disposition home or self-care (01) ==
LOC: EMR 07:30
PROVIDERS: Physician Assistant; EMERGENCY PHYSICIAN Emergency Medicine; FAMILY PHYSICIAN Family Medicine
DX: R10.30 Lower abdominal pain, unspecified (principal); R11.2 Nausea with vomiting, unspecified; F41.8 Other specified anxiety disorders; Z87.442 Personal history of urinary calculi
CPT/HCPCS: 99283; 96374; 96375; 96376; 96361; 74019; 80053; 81003; 81015; 85025; 87086